=== PATIENT | male | born 1990 | race Caucasian/White ===

== ENCOUNTER 2020-12-10 01:35 | Emergency (ER) | payer OTHER ==
[~2020-12-10 01:35] MED LIST: NORCO 5-325 TA1 EACH PO; PREDNISONE20 MG PO
[2020-12-10] MEDS ORDERED: DECADRON6 MG PO (03:05)
== END 2020-12-10 03:35 | disposition home or self-care (01) ==
LOC: ER1 01:35
DX: L50.0 Allergic urticaria (principal)
CPT/HCPCS: 96374; 96375; 99282; J2930

== ENCOUNTER 2021-10-03 14:40 | Emergency (ER) | payer OTHER ==
[~2021-10-03 14:40] MED LIST changes: +DECADRON6 MG PO
== END 2021-10-03 16:15 | disposition home or self-care (01) ==
LOC: ER1 14:40
DX: J10.1 Influenza due to other identified influenza virus with other respiratory manifestations (principal); F17.290 Nicotine dependence, other tobacco product, uncomplicated; Z20.822 Contact with and (suspected) exposure to COVID-19
CPT/HCPCS: 0240U; 86403; 87081; 87880; 99283